=== PATIENT | female | born 1945 | race African-American/Black ===

== ENCOUNTER → 2025-01-02 | Outpatient (CLI) | payer MEDICARE, MEDICAID ==
[~2025-01-02] MED LIST: AMLO5TAB88 PO; ATOR20TA65 PO; CARV12.545 PO; DIFL500T PO; GABA-290 PO; LOSA100T33 PO; OLAN5TAB74 PO; SERT-112 PO; TRAM50TA3 PO
== END | disposition home or self-care (01) ==
LOC: MAMMO 08:22
PROVIDERS: ATTEND Internal Medicine Nephrology
DX: M47.23 Other spondylosis with radiculopathy, cervicothoracic region (principal); M47.27 Other spondylosis with radiculopathy, lumbosacral region; M48.03 Spinal stenosis, cervicothoracic region; M48.07 Spinal stenosis, lumbosacral region; M46.04 Spinal enthesopathy, thoracic region; M85.88 Other specified disorders of bone density and structure, other site; C50.919 Malignant neoplasm of unspecified site of unspecified female breast; I70.0 Atherosclerosis of aorta; M54.2 Cervicalgia; M54.6 Pain in thoracic spine; M54.50 Low back pain, unspecified
CPT/HCPCS: 72040; 72070; 72100

== ENCOUNTER → 2025-01-19 | Outpatient (CLI) | payer MEDICARE, MEDICAID ==
[~2025-01-19] MED LIST changes: +GADOTERATE MEGLUMINE 5 MMOL/10 ML VIAL IV ONE
== END | disposition home or self-care (01) ==
LOC: RAD 08:51
PROVIDERS: ATTEND Internal Medicine Nephrology
DX: I67.82 Cerebral ischemia (principal); G93.89 Other specified disorders of brain; G31.9 Degenerative disease of nervous system, unspecified; R90.82 White matter disease, unspecified; I51.7 Cardiomegaly; C50.919 Malignant neoplasm of unspecified site of unspecified female breast; M54.10 Radiculopathy, site unspecified; Z85.3 Personal history of malignant neoplasm of breast
CPT/HCPCS: 70553; A9577

== ENCOUNTER → 2025-01-25 | Outpatient (CLI) | payer MEDICARE, MEDICAID ==
[~2025-01-25] MED LIST changes: +AMLO10TA80 PO; -AMLO5TAB88 PO; -GADOTERATE MEGLUMINE 5 MMOL/10 ML VIAL IV ONE; +HYDR12.54 PO
== END | disposition home or self-care (01) ==
LOC: MAMMO 09:16
PROVIDERS: ATTEND Internal Medicine Nephrology
DX: Z12.31 Encounter for screening mammogram for malignant neoplasm of breast (principal); R92.1 Mammographic calcification found on diagnostic imaging of breast
CPT/HCPCS: 77063; 77067

== ENCOUNTER → 2025-02-02 | Outpatient (CLI) | payer MEDICARE, MEDICAID | END | disposition home or self-care (01) | LOC: CARD 08:42 | PROVIDERS: ATTEND Internal Medicine | DX: I35.8 Other nonrheumatic aortic valve disorders (principal); I11.9 Hypertensive heart disease without heart failure; R06.02 Shortness of breath; Z86.73 Personal history of transient ischemic attack (TIA), and cerebral infarction without residual deficits | CPT/HCPCS: 93306 ==